=== PATIENT | male | born 1970 | race Caucasian/White ===

== ENCOUNTER 2018-11-23 10:31 | Emergency (ER) | payer OTHER ==
[~2018-11-23] VITALS: Ht 170.2 cm; Wt 77.1 kg
== END 2018-11-23 12:43 | disposition home or self-care (01) ==
LOC: ER 10:31
DX: B34.9 Viral infection, unspecified (principal)

== ENCOUNTER 2018-12-03 11:12 | Outpatient (CLI) | payer OTHER | END 2018-12-03 11:24 | disposition home or self-care (01) | LOC: LAB 11:12 | DX: J11.1 Influenza due to unidentified influenza virus with other respiratory manifestations (principal); J20.0 Acute bronchitis due to Mycoplasma pneumoniae ==